=== PATIENT | male | born 1995 | race Caucasian/White ===

== ENCOUNTER 2018-02-25 18:29 | Emergency (ER) | payer OTHER ==
--- NOTE | 2018-02-25 18:51 | EDPHY ---
H & P Time Seen by Provider: 02/25/18 18:38 HPI/ROS: CHIEF COMPLAINT: Sore throat times 7 days HISTORY OF PRESENT ILLNESS: 22-year-old immunocompetent male complaining of sore throat for the past 7 days. Was seen at urgent care started on steroid and clindamycin notes the symptoms continue. No trismus or drooling. No change in voice. No nuchal rigidity. No fever or chills. No cough. No rash. No testicular pain. No abdomen or flank pain. No nausea or vomiting. No malaise. No rash. No genitalia lesions. No ocular irritation. No GI complaints. REVIEW OF SYSTEMS: A ten point review of systems was performed and is negative with the exception of the items mentioned in the HPI PAST MEDICAL & SURGICAL HISTORY: No pertinent medical or surgical history SOCIAL HISTORY: Nonsmoker PHYSICAL EXAM (Prior to examination, patient consented to physical exam, hands were washed and my usual and customary physical exam procedures followed) 1) GENERAL: Well-developed, well-nourished, alert and oriented. Appears to be in no acute distress. 2) HEAD: Normocephalic, atraumatic 3) HEENT: Pupils equal, round, reactive to light bilaterally. Sclera anicteric. Oropharynx: No trismus no drooling, no hot potato voice, bilateral tonsils are symmetrically enlarged with white exudate with no pointing of the uvula, no asymmetry, no signs of peritonsillar abscess or deep space infection. Floor of mouth soft no evidence of Aris's angina. Ears bilaterally with normal tympanic membranes. 4) NECK: Full range of motion, no meningeal signs. 5) LUNGS: Clear auscultation bilaterally, no wheezes, no rhonchi, no retractions. 6) HEART: Regular rate and rhythm, no murmur, no heave, no gallop. 7) ABDOMEN: No guarding, no rebound, no focal tenderness, negative McBurney's, negative Greenwood's, negative Rovsing's, negative peritoneal sign, specifically , no splenomegaly is appreciated 8) MUSCULOSKELETAL: Moving all extremities, no focal areas of tenderness, no obvious trauma. No peripheral edema or discoloration. 9) BACK: No CVA tenderness, no midline vertebral tenderness, no fluctuance, no step-off, no obvious trauma, no visual or palpable abnormality. 10) SKIN: No rash, no petechiae. 11) Psychiatric: Patient is oriented X 3, there is no agitation. DIFFERENTIAL DIAGNOSIS: In no particular order including but not limited to strep pharyngitis, viral pharyngitis, peritonsillar abscess, retropharyngeal abscess or phlegmon, mononucleosis, epiglottitis Smoking Status: Never smoked Constitutional: Initial Vital Signs Temperature (C) 37.3 C 02/25/18 18:33 Heart Rate 64 02/25/18 18:33 Respiratory Rate 18 02/25/18 18:33 Blood Pressure 128/68 H 02/25/18 18:33 O2 Sat (%) 96 02/25/18 18:33 O2 Delivery Mode Room Air Allergies/Adverse Reactions: No Known Allergies Allergy (Verified 02/25/18 18:31) Home Medications: Medication Instructions Recorded Amoxicillin/Clavulanate Pot 875 mg PO BID #14 tab 02/25/18 [Augmentin 875 mg tab] Clindamycin 02/25/18 methylPREDNISolone [Medrol Dose 4 mg PO DAILY #1 ea 02/25/18 Augie] MDM/Departure - MDM ED Course/Re-evaluation: Patient's physical exam signs and symptoms are consistent with strep pharyngitis. He has no signs of peritonsillar abscess. He does have prior history of mononucleosis diagnosed in 2016 as emergency department visit. Here in emergency department do not think that imaging or emergent ENT consultation is indicated. I have recommended Medrol Dosepak, Augmentin, follow up with ENT in the next 1-2 days (today is Friday). Doubt epiglottitis. Definitely in the meantime should he develop new or worsening symptoms needs to return to the ER. He feels comfortable with this plan. All questions and concerns addressed by myself. Care of patient under supervision of secondary supervising physician Dr Huang . - Depart Disposition: Home, Routine, Self-Care Clinical Impression: Acute streptococcal pharyngitis Condition: Good Instructions: Strep Throat (ED) Additional Instructions: Return to the ER immediately if you cannot swallow, have drooling, fevers, neck stiffness, cannot open your jaw, or any other symptoms that concern you. Prescriptions: Amoxicillin/Clavulanate Pot [Augmentin 875 mg tab] 875 mg PO BID #14 tab methylPREDNISolone [Medrol Dose Augie] 4 mg PO DAILY #1 ea Referrals: Alexandre Mir MD [Medical Doctor] - 1 day without fail
[2018-02-25 19:08] VITALS: BP 128/71
== END 2018-02-25 19:05 | disposition home or self-care (01) ==
DX: J02.0 Streptococcal pharyngitis (principal)